=== PATIENT | male | born 1965 | race Caucasian/White ===

== ENCOUNTER 2021-01-23 13:06 | Emergency (ER) | payer BC ==
[2021-01-23 13:11] VITALS: BP 124/83; PULSE 74; RESP 20; TEMP 98.1
[2021-01-23] MEDS ORDERED: RABIES VACCINE (PCEC) 2.5 UNIT KIT IM ONE (13:45)
[2021-01-23] MEDS ORDERED: RABIES IMMUNE GLOB 300 UNIT/ML 5 ML VIAL IM ONE (13:45)
[2021-01-23] MEDS ORDERED: RABIES IMMUNE GLOB 300 UNIT/ML 1 ML VIAL IM ONE (13:45)
--- NOTE | 2021-01-23 14:08 | ED ---
Animal Bite HPI - General Chief Complaint: Animal Bite Stated Complaint: bat exposure Time Seen by Provider: 01/23/21 13:21 Source: patient Mode of arrival: ambulatory Limitations: no limitations - History of Present Illness Initial Comments: Patient is a 56-year-old male presenting to the emergency department requesting rabies vaccine. Patient states 2 nights ago him and his were exposed to a bat in the room late at night for an unknown amount of time. To his knowledge, there was no physical contact with the bite. His family were seen yesterday and received the rabies vaccine and is requesting it today. He has no symptoms, no complaints today. His vital signs are stable. - Related Data Allergies Allergy/AdvReac Type Severity Reaction Status Date / Time No Known Allergies Allergy Verified 01/23/21 13:12 Review of Systems ROS Statement: Those systems with pertinent positive or pertinent negative responses have been documented in the HPI. ROS Other: All systems not noted in ROS Statement are negative. Past Medical History Past Medical History: No Reported History History of Any Multi-Drug Resistant Organisms: None Reported Past Surgical History: No Surgical Hx Reported Past Psychological History: No Psychological Hx Reported Smoking Status: Never smoker Past Alcohol Use History: Daily Past Drug Use History: None Reported General Exam - General Exam Comments Initial Comments: GENERAL: Patient is well-developed and well-nourished. Patient is nontoxic and in no acute distress. HEAD: Atraumatic, normocephalic. EYES: Pupils equal round and reactive to light, extraocular movements intact, sclera anicteric, conjunctiva are normal. Eyelids were unremarkable. ENT: Moist mucous membranes. NECK: Normal range of motion, supple without lymphadenopathy or JVD. LUNGS: Unlabored respirations. Breath sounds clear to auscultation bilaterally and equal. No wheezes rales or rhonchi. HEART: Regular rate and rhythm without murmurs, rubs or gallops. MUSCULOSKELETAL: Normal extremities with adequate strength and normal range of motion, no pitting or edema. No clubbing or cyanosis. NEUROLOGICAL: Patient is alert and oriented x 3. SKIN: Warm, Dry, normal turgor, no rashes or lesions noted. Limitations: no limitations Course Vital Signs 01/23/21 13:09 Temperature 98.1 F Pulse Rate 74 Respiratory 20 Rate Blood Pressure 124/83 O2 Sat by Pulse 99 Oximetry Medical Decision Making - Medical Decision Making Patient is a 56-year-old male here requesting rabies vaccine after him and his family were exposed to a bat tonight to go. To his knowledge of his no physical exposure, no bites. He wishes to do this out of caution. Patient was given the rabies immunoglobulin and first dose of vaccine today. I will give him a p rescription for the next 3 rabies vaccines. He is stable for discharge. He is agreement with this plan of care. Disposition Clinical Impression: Exposure to bat without known bite Disposition: HOME SELF-CARE Condition: Stable Instructions (If sedation given, give patient instructions): Rabies Vaccine (ED) Additional Instructions: Please return to the Emergency Department if symptoms worsen or any other concerns. Repeat rabies vaccine on day 3, day 7, day 14 as instructed. Is patient prescribed a controlled substance at d/c from ED?: No Referrals: Nonstaff,Physician [Primary Care Provider] - 1-2 days Time of Disposition: 14:08
== END 2021-01-23 14:22 | disposition home or self-care (01) ==
LOC: EC 13:06
DX: Z20.3 Contact with and (suspected) exposure to rabies (principal)
CPT/HCPCS: 90375; 90471; 90472; 90675; 99283